=== PATIENT | male | born 1960 | race Two or more races ===

== ENCOUNTER 2023-03-06 20:12 | Emergency (ER) | payer OTHER ==
[~2023-03-06] VITALS: Ht 170.2 cm; Wt 86.2 kg
[2023-03-06 20:20] VITALS: BP 138/89
== END 2023-03-07 00:10 | disposition home or self-care (01) ==
LOC: ER 20:16
DX: K40.90 Unilateral inguinal hernia, without obstruction or gangrene, not specified as recurrent (principal)
CPT/HCPCS: 71250; 74176

== ENCOUNTER 2024-05-19 13:47 | Emergency (ER) | payer OTHER ==
[~2024-05-19] VITALS: Ht 170.2 cm; Wt 88.3 kg
[2024-05-19 16:04] LABS: Basophils # (auto) 0 10 ^3/uL (0-0.2); Basophils % (auto) 0.3 % (0.0-2.0); Eosinophils # (auto) 0 10 ^3/uL (0-0.8); Eosinophils % (auto) 0.3 % (0.0-7.0); Hematocrit 50.9 % (41.0-53.0); Lymphocytes # (auto) 2.2 10 ^3/uL (0.4-5.4); Lymphocytes % (auto) 14.9 % (10.0-50.0); Mean Corpuscular Hemoglobin 31.4 pg (28.0-32.0); Mean Corpuscular Hgb Conc. 35.3 g/dL (32.0-36.0); Mean Corpuscular Volume 89.1 fL (80.0-100.0); Monocytes # (auto) 1.9 10 ^3/uL (0-1.3); Neutrophils # (auto) 10.6 10 ^3/uL (1.6-8.6); Neutrophils % (auto) 71.5 % (37.0-80.0); Nucleated Red Blood Cells % 0.4 %; Platelet Count (auto) 195 10^3/uL (140-450); Red Blood Cells 5.72 10^6/uL (4.5-5.90); Red Cell Distribution Width 13.1 % (11.8-14.3); White Blood Cell 14.9 10^3/uL (4.4-10.8)
[2024-05-19 16:35] LABS: Alanine Aminotransferase 25 U/L (7-40); Albumin 4.8 g/dL (3.2-4.8); Alkaline Phosphatase 74 U/L (46-116); Anion Gap 11 (5-15); Aspartate Aminotransferase 17 U/L (13-40); Bilirubin, Total 1.8 mg/dL (0.2-1.0); Blood Urea Nitrogen 15 mg/dL (9-23); Calcium 9.9 mg/dL (8.7-10.4); Carbon Dioxide 24 mmol/L (20-30); Chloride 104 mmol/L (98-107); Glucose 88 mg/dL (74-106); Sodium 139 mmol/L (136-145); Total Protein 8.1 g/dL (5.7-8.2)
[2024-05-19] MEDS ORDERED: TAMS-35 PO (17:30)
[2024-05-19] MEDS ORDERED: DUTA0.5C11 PO (17:30)
[2024-05-19] MEDS ORDERED: CIPR-173 PO (17:30)
[2024-05-19 17:33] LABS: Urine Blood 2+ /uL (Negative); Urine Clarity Turbid (Clear); Urine Color Yellow (Yellow); Urine Protein, UAD 2+ (Negative); Urine Specific Gravity 1.026 (1.001-1.035); Urine Urobilinogen Normal (Negative); Urine pH 5.5 (5.0-9.0)
[2024-05-19 18:02] VITALS: BP 133/81; PULSE 88; RESP 18; TEMP 98.5; O2SAT 97
[2024-05-21 09:06] LABS: PSA Free 1.57 ng/mL
[2024-05-21 10:07] LABS: Prostate Specific Antigen 7.1 ng/mL (0.0-4.0)
== END 2024-05-19 18:03 | disposition home or self-care (01) ==
LOC: ER 13:47
DX: K40.90 Unilateral inguinal hernia, without obstruction or gangrene, not specified as recurrent (principal); N40.0 Benign prostatic hyperplasia without lower urinary tract symptoms; Z88.0 Allergy status to penicillin
CPT/HCPCS: 36415; 80053; 81003; 84153; 84154; 85025

== ENCOUNTER 2024-11-12 08:34 | Day surgery (SDC) | payer MEDICAID ==
[2024-11-09 10:18] LABS: INR 1.04 (0.9-1.15); Partial Thromboplastin Time 30.8 SEC (24.5-34.5)
[2024-11-09 10:28] LABS: Hematocrit 51.1 % (41.0-53.0); Hemoglobin 17.2 g/dL (13.5-17.5); Mean Corpuscular Hemoglobin 29.9 pg (28.0-32.0); Mean Corpuscular Hgb Conc. 33.7 g/dL (32.0-36.0); Mean Corpuscular Volume 88.6 fL (80.0-100.0); Platelet Count (auto) 221 10^3/uL (140-450); Red Blood Cells 5.77 10^6/uL (4.5-5.90); Red Cell Distribution Width 12.9 % (11.8-14.3); White Blood Cell 5.2 10^3/uL (4.4-10.8)
[2024-11-09 10:40] LABS: Band Neutrophils % (manual) 0; Basophils % (manual) 0 (0.0-2.0); Blast Cells 0; Metamyelocytes % 0; Myelocytes % 0; Promyelocytes % 0; Reactive Lymphocytes 0
[2024-11-09 10:46] LABS: Alanine Aminotransferase 14 U/L (7-40); Albumin 4.8 g/dL (3.2-4.8); Alkaline Phosphatase 74 U/L (46-116); Anion Gap 10 (5-15); Aspartate Aminotransferase 13 U/L (13-40); BUN/Creatinine Ratio 12.9 (10.0-20.0); Blood Urea Nitrogen 17 mg/dL (9-23); Calcium 9.8 mg/dL (8.7-10.4); Carbon Dioxide 25 mmol/L (20-31); Chloride 104 mmol/L (98-107); Potassium 4.2 mmol/L (3.5-5.1); Sodium 139 mmol/L (136-145)
[2024-11-09 10:47] LABS: Bilirubin, Total 0.9 mg/dL (0.2-1.0); Total Protein 7.9 g/dL (5.7-8.2)
[2024-11-09 10:55] LABS: Glucose 130 mg/dL (74-106)
[2024-11-09 11:13] LABS: Eosinophils % (manual) 2 (0-7); Lymphocytes % (manual) 44 (10.0-50.0); Monocytes % (manual) 11 (0-12)
[2024-11-09 11:14] LABS: Platelet Estimate Adequate
[~2024-11-12] VITALS: Ht 170.2 cm; Wt 89.8 kg
[~2024-11-12 08:34] MED LIST: ALBUAER3 IN; ALP15OS OP; DORZ2SOL18 OP; DUTA0.5C11 PO; FLUT250M2 IN; IBUP-1456 PO; NETA1DRO OP; SOFO1TAB PO; TAMS-35 PO
[2024-11-12] MEDS ORDERED: MIDAZOLAM HCL 2MG/2ML 2ml VIAL (1mg/ml) ONE (10:05)
[2024-11-12] MEDS ORDERED: SODIUM CHLORIDE LOCK 10 ML ONE (10:07)
[2024-11-12 10:25] VITALS: PULSE 73; RESP 16; O2SAT 97
[2024-11-12] MEDS: MIDAZOLAM HCL 5 MG/ML-1ML VIAL ONE (10:28)
[2024-11-12] MEDS: fentaNYL CITRATE 100 MCG/2 ML VL ONE (10:28)
[2024-11-12 10:45] VITALS: TEMP 97.8; O2SAT 96
--- NOTE | 2024-11-12 10:47 | DVHNC2 ---
Procedure - DATE OF PROCEDURE: November 12, 2024 SURGEON: LI PENA MD REFERRING PROVIDER: Dr. Cande Manning MD PROCEDURE PERFORMED: 1. Colonoscopy with hot snare polypectomy with moderate sedation PRE-PROCEDURE DIAGNOSIS: 1. Colorectal cancer screening average risk POSTPROCEDURE DIAGNOSIS: 1. 1.25 cm pedunculated sigmoid polyp INDICATIONS FOR PROCEDURE: The patient is a 64-year-old male presents for a pressure colonoscopy for screening. MEDICATIONS USED: 5. mg Versed IV and 75 mcg of fentanyl IV DETAILS OF THE PROCEDURE: Informed consent was obtained after risks, benefits, and alternatives, were discussed at length with the patient. The patient gave consent to the procedure as well as the medication used for sedation. The patient was placed in the left lateral decubitus position. Digital rectal exam showed no abnormalities. An Olympus variable torsion adult colonoscope was inserted into the rectum and advanced to the cecum. The cecum was identified by the ileocecal valve and the appendiceal orifice. The scope was then withdrawn. The prep was good with little amounts of liquid stool. The patient had one pedunculated 1.25 cm polyp in the sigmoid colon removed with hot snare polypectomy with good hemostasis were no significant mucosal defect. The rest of the colon showed no abnormalities. More than 7 minutes withdrawal time was noted. Retroflexion showed no abnormalities. The patient tolerated the procedure well. [place] BOWEL PREP SCORE: 9. COLONOSCOPY START TIME: 1032 CECUM TIME: 1034 COLONOSCOPY END TIME: 1041 IMPRESSION: 1. 1.25 cm sigmoid polyp removed with hot snare polypectomy otherwise normal colonoscopy RECOMMENDATIONS: 1. Follow up with procedure results 2. Repeat colonoscopy in three years unless otherwise indicated by pathology, family history or symptoms 3. High-fiber diet 4. Follow up with primary care physician I WOULD LIKE TO THANK DR. MANNING FOR THIS REFERRAL LI PENA MD Nov 12, 2024 10:47
== END 2024-11-12 11:40 | disposition home or self-care (01) ==
LOC: GI 08:34
PROVIDERS: ATTEND Specialist
DX: Z12.11 Encounter for screening for malignant neoplasm of colon (principal); D12.5 Benign neoplasm of sigmoid colon; Z79.899 Other long term (current) drug therapy; Z98.890 Other specified postprocedural states; Z88.0 Allergy status to penicillin; Z88.1 Allergy status to other antibiotic agents; Z88.8 Allergy status to other drugs, medicaments and biological substances
CPT/HCPCS: 36415; 45385; 80053; 85007; 85027; 85610; 85730; 88305; J2250; J3010; 99152

== ENCOUNTER 2025-07-09 17:42 | Emergency (ER) | payer MEDICAID ==
[~2025-07-09] VITALS: Ht 170.2 cm; Wt 92.9 kg
[2025-07-09 18:27] LABS: Hematocrit 46.8 % (41.0-53.0); Hemoglobin 16.2 g/dL (13.5-17.5); Mean Corpuscular Hemoglobin 30.0 pg (28.0-32.0); Mean Corpuscular Volume 86.5 fL (80.0-100.0); Nucleated Red Blood Cells % 1.0 %
[2025-07-09 18:44] LABS: Alanine Aminotransferase 18 U/L (7-40); Albumin 4.6 g/dL (3.2-4.8); Alkaline Phosphatase 88 U/L (46-116); Anion Gap 11 (5-15); BUN/Creatinine Ratio 6.6 (10.0-20.0); Bilirubin, Total 1.2 mg/dL (0.2-1.0); Calcium 9.2 mg/dL (8.7-10.4); Carbon Dioxide 25 mmol/L (20-31); Chloride 100 mmol/L (98-107); Sodium 136 mmol/L (136-145)
[2025-07-09 18:48] LABS: Blood Urea Nitrogen 9 mg/dL (9-23); Glucose 125 mg/dL (74-106); Potassium 3.4 mmol/L (3.5-5.1); Total Protein 8.3 g/dL (5.7-8.2)
--- NOTE | 2025-07-09 19:34 | ED.PDOC ---
General HPI Comments HPI: Poor Historian. 64-year-old male presents to emergency department for proximally five day history of increasing urinary frequency. Patient denies any burning with the urination. Patient states having history of BPH and states compliance with his medications. Symptoms have been getting worse lately. He has to go to the restroom at least 10 times a day to void urine. Denies any other acute pain or fever or any other complaints. Past Medical History: Hyperlipidemia, BPH, chest mass Past Surgical History: Inguinal hernia repair REVIEW OF SYSTEMS: CONSTITUTIONAL: Denies acute: fever, diaphoresis, chills, generalized weakness. HEAD: Denies acute: headache, photophobia Eyes: Denies acute: Double vision, vision loss, eye pain, eye discharge. EARS: Denies acute: tinnitus, hearing loss, ear discharge, ear pain, THROAT: Denies acute: sore throat, swelling, difficulty swallowing , pain with swallowing, change in voice. NECK: Denies acute: neck pain, neck swelling, stiff neck. HEART: Denies acute : chest pain, palpitations, LUNGS: Denies acute: SOB, wheezing, cough, hemoptysis ABDOMEN: Denies acute: abdominal pain, Nausea, Vomiting, diarrhea, melena , hematemesis, hematochezia SKIN: Denies acute: rash, redness, lesions, itchiness. EXTREMITIES: Denies acute: calf pain, numbness, tingling, weakness, denies pain in extremity. Denies acute: Low back pain. Neuro: Denies acute: focal neurological deficit, motor or sensory focal neurological deficit, tremors, seizure like activity, confusion, dizziness, change in mental status, loss of bowel or bladder function, cauda equina like symptoms. : Denies acute: dysuria, hematuria, flank pain, PSYCH: Denies acute: hallucination, suicidal ideation, homicidal ideation. PHYSICAL EXAM: General: ----no----acute distress, awake and alert. Head: normocephalic, atraumatic. Neck: supple, trachea is midline, no swelling. Throat: Normal phonation. Eyes:, no erythema, no purulent discharge, no proptosis, no icterus. Heart: regular rate, regular rhythm, no significant murmur appreciated. Lungs: no apparent respiratory distress, Able to speak in full sentences. No wheezing, no rhonchi, no crackles. No stridors Clear to auscultation bilaterally. Abdomen: non tender to palpation, non distended, soft, no guarding, no rebound, + bowel sounds. Neuro: Awake, Alert, oriented to name, self, situation, follows commands GCS=15. Speech is normal. Skin: no petechia, no purpura, no cyanosis, non-pale, not jaundice. Lower extremities: --no - Pitting edema no deformity, no focal swelling, no calf TTP. Makes eye contact. moves all four extremities. Face: no apparent facial droop. Ambulating in the ED independently. ED COURSE: DISCLAIMER: This medical document was created using an electronic medical record system with voice recognition software and computerized dictation system. Although this document has been carefully reviewed, there might still be some phonetic and typographical errors. Occasional wrong-word or "sound-alike" substitutions may have occurred due to the inherent limitations of voice recognition software. These areas are purely typographical due to imperfections of the software programs and do not reflect any compromise in the patient's medical care. Please read the chart carefully and recognize, using context, where these substitutions have occurred. Chief Complaint: Urinary Time Seen by MD: 17:47 Reviewed notes: Allergies Allergies: Coded Allergies: Penicillins (Verified Allergy, Unknown, 03/06/23) Home Meds Active Scripts Tamsulosin Hcl (Flomax) 0.4 Mg Cap, 0.4 MG PO DAILY for 30 Days, #30 CAP Prov:RICCO CONTRERAS MD 05/19/24 Dutasteride (Avodart) 0.5 Mg Cap, 0.5 MG PO DAILY for 30 Days, #30 CAP Prov:RICCO CONTRERAS MD 05/19/24 Reported Medications Dorzolamide-Timolol (Dorzolamide Hcl/Timolol M) 1 Ml Delia, 1 ML OP, ML 11/09/24 Brimonidine Tartrate (ALPHAGAN P 0.15% OPTHALMIC) [address], 1 DROP OP, DROP 11/09/24 Netarsudil Dimesylate-Latanopr (Rocklatan 0.02-0.005 %) 1 Gerardo Gerardo, 1 GERARDO OP, GERARDO 11/09/24 Fluticasone-Salmeterol (Advair Diskus 250/50) 1 Puff Ih, IN, INH 11/09/24 Albuterol Sulfate (VENTOLIN MDI) 90 Mcg Ih, 90 MCG IN PRN, INH 11/09/24 Ibuprofen (Ibuprofen) 800 Mg Tab, PO Q8HP, TAB 11/09/24 Sofosbuvir/Velpatasvir (Sofosbuvir/Velpatasvir 400-100 mg) 1 Tab Tab, 1 TAB PO, TAB 11/09/24 Information Source: Patient Mode of Arrival: Ambulatory Past Medical History PAST MEDICAL HISTORY: Denies Surgical History: Hernia Repair Family History Family History: Reviewed,noncontributory to illness Social History Smoker: Non-Smoker Alcohol: Denies ETOH Use Drugs: Denies Drug Use Lives In: Home X-Ray, Labs, Meds, VS Vital Signs Date Time Temp Pulse Resp B/P (MAP) Pulse Ox O2 Delivery O2 Flow Rate FiO2 07/09/25 17:44 97.0 95 15 126/89 96 97.0 Lab Test 07/09/25 20:27 07/09/25 18:15 Range/Units Urine Color Yellow Yellow Urine Clarity Clear Clear Urine pH 5.5 5.0-9.0 Urine Specific [place] 1.015 1.001-1.035 Urine Protein Negative Negative Urine Ketones Negative Negative Urine Blood Negative Negative /uL Urine Nitrite Negative Negative Urine Bilirubin Negative Negative Urine Urobilinogen Normal Negative mg/dL Urine Leukocyte Esterase Negative Negative /uL Urine RBC 1 0 - 3 /hpf Urine Microscopic WBC 4 H 0-3 /HPF Urine Squamous Epithelial Cells Few <5 /hpf Urine Bacteria Few H None Seen /hpf Urine Hyaline Casts Few 0 - 2 /lpf Urine Mucus Few None Seen Urine Glucose Normal Normal mg/dL White Blood Count 13.3 H 4.4-10.8 10^3/uL Red Blood Count 5.41 4.5-5.90 10^6/uL Hemoglobin 16.2 13.5-17.5 g/dL Hematocrit 46.8 41.0-53.0 % Mean Corpuscular Volume 86.5 80.0-100.0 fL Mean Corpuscular Hemoglobin 30.0 28.0-32.0 pg Mean Corpuscular Hemoglobin Concent 34.6 32.0-36.0 g/dL Red Cell Distribution Width 12.8 11.8-14.3 % Platelet Count 219 140-450 10^3/uL Mean Platelet Volume 7.6 6.9-10.8 fL Neutrophils (%) (Auto) 71.3 37.0-80.0 % Lymphocytes (%) (Auto) 15.6 10.0-50.0 % Monocytes (%) (Auto) 12.1 H 0.0-12.0 % Eosinophils (%) (Auto) 0.2 0.0-7.0 % Basophils (%) (Auto) 0.8 0.0-2.0 % Neutrophils # (Auto) 9.5 H 1.6-8.6 10 ^3/uL Lymphocytes # (Auto) 2.1 0.4-5.4 10 ^3/uL Monocytes # (Auto) 1.6 H 0-1.3 10 ^3/uL Eosinophils # (Auto) 0 0-0.8 10 ^3/uL Basophils # (Auto) 0.1 0-0.2 10 ^3/uL Nucleated Red Blood Cells 1.0 % Sodium Level 136 136-145 mmol/L Potassium Level 3.4 L 3.5-5.1 mmol/L Chloride Level 100 98-107 mmol/L Carbon Dioxide Level 25 20-31 mmol/L Anion Gap 11 5-15 Blood Urea Nitrogen 9 9-23 mg/dL Creatinine 1.36 H 0.700-1.30 mg/dL Glomerular Filtration Rate Calc 58 >90 mL/min BUN/Creatinine Ratio 6.6 L 10.0-20.0 Serum Glucose 125 H 74-106 mg/dL Lactic Acid Level 1.1 0.4-2.0 mmol/L Calcium Level 9.2 8.7-10.4 mg/dL Total Bilirubin 1.2 H 0.2-1.0 mg/dL Aspartate Amino Transferase (AST) 21 13-40 U/L Alanine Aminotransferase (ALT) 18 7-40 U/L Alkaline Phosphatase 88 46-116 U/L Total Protein 8.3 H 5.7-8.2 g/dL Albumin 4.6 3.2-4.8 g/dL SEPSIS Sepsis Screen Date sepsis recognized/suspect: Jul 09, 2025 Time Sepsis recognized/suspect: 1745 Recent Procedure: No On Antibiotic Therapy: No Respiratory Rate >20: No Heart Rate >90: No Temp<36 C (96.8 F) or >38.3 C: No SBP <90 or MAP <65 mmHG: No New Acute Mental Status Change: No Is the patient on CPAP, BIPAP,: No Physician Orders [employer] Hard[employer] Outfitter (07/09/25 ) Bladder Scan (07/09/25 ) Ct Ab Pel Wo Con-No Oral Or Iv (07/09/25 19:17) Vital Signs Date Time Temp Pulse Resp B/P (MAP) Pulse Ox O2 Delivery O2 Flow Rate FiO2 07/09/25 17:44 97.0 95 15 126/89 96 97.0 Laboratory Tests Test 07/09/25 18:15 Lactic Acid Level 1.1 mmol/L (0.4-2.0) White Blood Count 13.3 10^3/uL (4.4-10.8) H Departure 1 Departure Time of Disposition: 19:33 Impression: Primary Impression: BPH (benign prostatic hyperplasia) Additional Impression: UTI (urinary tract infection) Disposition: HOME / SELF CARE / HOMELESS Condition: Stable Additional Instructions: Additional instructions: Please read all instructions provided in this packet carefully. You MUST follow-up with your primary care/family doctor in 1 to 2 days. If you are unable to see your primary care/family doctor, please return to our emergency room for re-assessment and re-evaluation in 1 to 2 days. Return to the emergency room here in our facility or to the nearest ER [facility] if your symptoms change or worsen. CONSULTATIONS: you MUST Follow-up for consultation as soon as possible with: -urology in 1-2 days. Please call for appointment. You MUST call the consultants office yourself to make an appointment. You may need to arrange that through your insurance and/or your primary/family doctor. If you are unable to see the acura sales consultant in 1 to 2 days, you must return to our emergency room (or any other ER of your choice) for re-assessment and re- evaluation. Adequate fluid hydration. Although you have been discharged from the Emergency Department, this does not mean that you have a "clean bill of health". No definitive diagnosis for your symptoms has been made today. It is possible that you are in the process of developing a serious illness. This is why you must return to the ED without fail if any new or worsening symptoms develop. Below is a copy of your radiological report for follow up: [facility] [address] [facility] [address] Ph: [phone] DIAGNOSTIC IMAGING Diagnostic Imaging Report : [id number] Signed PATIENT: MAGED JIMENEZ ACCT: [id number] UNIT: [id number] : 1960 LOC: ER ROOM / BED: / AGE / SEX: 64 / M ADM STATUS: REG ER SERVICE 16 ORDERING PHYSICIAN: TERELL LITTLE DO PROCEDURE(s): ABPL - CT AB PEL WO CON-NO ORAL OR IV REASON: urinary symptoms ORDER NUMBER(s): [id number], ACCESSION NUMBER(s): [id number] Exam: CT CT AB PEL WO CON-NO ORAL OR IV History: urinary symptoms Comparison Study: CT CHST AB PEL WO CON-NO IV/ORAL on DOS: 03/06/23 Technique: Multidetector spiral CT of the abdomen was performed from lung bases to pubic symphysis. Imaging was performed without IV contrast. Axial, coronal and sagittal multiplanar reformats were obtained from the axial data set by the technologist. Radiation Dose : 1. Abdomen/Pelvis: CTDIvol 12.04 mGy, DLP 630.38 mGy*cm. Findings: Evaluation of solid organs is limited due to lack of intravenous contrast use. Lung Bases: No acute or significant lung base finding. Normal heart size. No pleural or pericardial effusion. Liver: The liver is normal in size. No focal lesions. Gallbladder and Biliary Tree: Unremarkable Spleen: Unremarkable Pancreas: The pancreas is grossly normal in appearance. Adrenal Glands: Unremarkable Kidneys: Kidneys are grossly normal without calculi or hydronephrosis. Bladder: Grossly unremarkable for degree of distention. Bowel: The stomach is grossly normal in appearance. Small bowel and colon are normal in caliber and distribution. Normal appendix is visualized in the right lower quadrant without findings of appendicitis. Ascites: Absent Lymphadenopathy: No mesenteric, retroperitoneal or periportal lymphadenopathy. Abdominal Wall and Mesentery: Unremarkable. Vasculature: The visualized abdominal aorta is normal in size and caliber. Evaluation of abdominal and pelvic vessels is limited due to lack of intravenous contrast. Pelvic Organs: Unremarkable Musculoskeletal: No aggressive focal bony lesions, acute fractures or dislocation. IMPRESSION: No acute abdominal or pelvic findings. Radiation optimization: All CT scans at this facility use at least one of these dose optimization techniques: automated exposure control mA and/or kV adjustment per patient size (includes targeted exams where dose is matched to clinical indication) or iterative reconstruction. ATED BY: MEGHANN CROWE MD DICTATED DATE/TIME: 07/09/252002 SIGNED BY: MEGHANN CROWE MD SIGNED DATE/TIME: 07/09/252002 CC: e-Prescriptions Nitrofurantoin Monohydrate Mac (Macrobid) 100 Mg Cap 100 MG PO BID for 7 Days, #14 CAP Prov: TERELL LITTLE DO 07/09/25 Discharged With: Self TERELL LITTLE DO Jul 09, 2025 19:33
--- NOTE | 2025-07-09 20:05 | DVH ---
Exam: CT CT AB PEL WO CON-NO ORAL OR IV History: urinary symptoms Comparison Study: CT CHST AB PEL WO CON-NO IV/ORAL on DOS: 03/06/23 Technique: Multidetector spiral CT of the abdomen was performed from lung bases to pubic symphysis. I maging was performed without IV contrast. Axial, coronal and sagittal multiplanar reformats were obta ined from the axial data set by the technologist. Radiation Dose : 1. Abdomen/Pelvis: CTDIvol 12.04 mGy, DLP 630.38 mGy*cm. Findings: Evaluation of solid organs is limited due to lack of intravenous contrast use. Lung Bases: No acute or significant lung base finding. Normal heart size. No pleural or pericardial effusion. Liver: The liver is normal in size. No focal lesions. Gallbladder and Biliary Tree: Unremarkable Spleen: Unremarkable Pancreas: The pancreas is grossly normal in appearance. Adrenal Glands: Unremarkable Kidneys: Kidneys are grossly normal without calculi or hydronephrosis. Bladder: Grossly unremarkable for degree of distention. Bowel: The stomach is grossly normal in appearance. Small bowel and colon are normal in caliber and d istribution. Normal appendix is visualized in the right lower quadrant without findings of appendicit is. Ascites: Absent Lymphadenopathy: No mesenteric, retroperitoneal or periportal lymphadenopathy. Abdominal Wall and Mesentery: Unremarkable. Vasculature: The visualized abdominal aorta is normal in size and caliber. Evaluation of abdominal a nd pelvic vessels is limited due to lack of intravenous contrast. Pelvic Organs: Unremarkable Musculoskeletal: No aggressive focal bony lesions, acute fractures or dislocation. IMPRESSION: No acute abdominal or pelvic findings. Radiation optimization: All CT scans at this facility use at least one of these dose optimization black hniques: automated exposure control mA and/or kV adjustment per patient size (includes targeted exam s where dose is matched to clinical indication) or iterative reconstruction.
[2025-07-09 20:43] LABS: Urine Protein, UAD Negative (Negative)
[2025-07-09] MEDS ORDERED: NITR-87 PO (21:19)
[2025-07-09 22:19] VITALS: BP 125/81; PULSE 75; RESP 19; TEMP 98.3; O2SAT 96
== END 2025-07-09 22:19 | disposition home or self-care (01) ==
LOC: ER 17:42
DX: N40.0 Benign prostatic hyperplasia without lower urinary tract symptoms (principal); N39.0 Urinary tract infection, site not specified; E78.5 Hyperlipidemia, unspecified; Z98.890 Other specified postprocedural states; Z88.0 Allergy status to penicillin
CPT/HCPCS: 36415; 74176; 80053; 81001; 83605; 85025